=== PATIENT | female | born 1995 | race Caucasian/White ===

== ENCOUNTER 2022-01-23 08:30 | Inpatient (IN) | payer BC ==
[2022-01-23] MEDS: Lactated Ringers 1,000 ML IV ONE ×2 (09:00→10:16)
[2022-01-23] MEDS ORDERED: Ondansetron 4 MG/2 ML SDV ONE (09:50)
[2022-01-23] MEDS ORDERED: Water For Injection, Sterile 40 ML ONE (09:50)
[2022-01-23] MEDS ORDERED: Dexamethasone 4 MG/ML 5 ML MDV ONE (09:50)
[2022-01-23] MEDS ORDERED: Ropivacaine 0.5% 5 MG/ML 30 ML SDV ONE (09:50)
[2022-01-23] MEDS ORDERED: ceFAZolin 2 GM Vial ONE (09:50)
[2022-01-23] MEDS ORDERED: Dexmedetomidine 200 MCG/2 ML SDV ONE (09:50)
[2022-01-23] MEDS ORDERED: Bupivacaine 0.5% 10 ML SDV ONE (09:50)
[2022-01-23] MEDS ORDERED: Phenylephrine HCl In 0.9% NaCl 1 MG/10 ML Vial ONE (09:50)
[2022-01-23] MEDS ORDERED: Morphine PF 10 MG/10 ML SDV ONE (09:50)
[2022-01-23] MEDS ORDERED: Oxytocin 10 Units/1 ML SDV ONE (09:50)
[2022-01-23] MEDS ORDERED: Sodium Chloride 0.9% 2.5 ML Syringe FLUSH PRN (09:57)
[2022-01-23] MEDS ORDERED: Sodium Chloride 0.9% 20 ML SDV IV PRN (09:57)
[2022-01-23] MEDS ORDERED: Sodium Chloride 0.9% 10 ML Syringe FLUSH PRN (09:57)
[2022-01-23] MEDS ORDERED: Citric Acid/Sodium Citrate Solution 30 ML Cup PO ONE (09:57)
[2022-01-23] MEDS ORDERED: Oxytocin/0.9 % Sodium Chloride 30 UNIT/500 ML BAG IV SCH (10:00)
[2022-01-23] MEDS ORDERED: Clindamycin Phosphate in D5W 900 MG in Premix Bag 1 BAG IV ONE ×2 (10:09)
[2022-01-23] MEDS ORDERED: Misoprostol 200 MCG Tab RECTAL PRN (11:46)
[2022-01-23] MEDS ORDERED: Oxytocin 10 Units/1 ML SDV IM PRN (11:46)
[2022-01-23] MEDS ORDERED: Methylergonovine 0.2 MG/1 ML Amp IM PRN (11:46)
[2022-01-23] MEDS ORDERED: Acetaminophen/oxyCODONE 325-5 MG Tab PO PRN (11:46)
[2022-01-23] MEDS ORDERED: Ondansetron 4 MG/2 ML SDV IVPUSH PRN ×2 (11:46→12:01)
[2022-01-23] MEDS ORDERED: Bisacodyl 10 MG Supp RECTAL PRN (11:46)
[2022-01-23] MEDS ORDERED: Lanolin 100% Cream 7 GM Tube TOP PRN (11:46)
[2022-01-23] MEDS ORDERED: diphenhydrAMINE 50 MG/ML SDV IVPUSH PRN ×2 (11:46→12:01)
[2022-01-23] MEDS ORDERED: Ibuprofen 800 MG Tab PO PRN (11:46)
[2022-01-23] MEDS ORDERED: Tranexamic Acid 1,000 MG in Sodium Chloride 0.9% 100 ML IV PRN (11:46)
[2022-01-23] MEDS: Ketorolac 30 MG/ML SDV IVPUSH SCH ×2 (12:00→18:09)
[2022-01-23] MEDS ORDERED: Lactated Ringers 1,000 ML IV SCH (12:00)
[2022-01-23] MEDS ORDERED: fentaNYL 100 MCG/2 ML SDV IVPUSH PRN (12:01)
[2022-01-23] MEDS ORDERED: ePHEDrine 50 MG/ML SDV IVPUSH PRN (12:01)
[2022-01-23] MEDS ORDERED: Naloxone 0.4 MG/ML SDV IVPUSH PRN (12:01)
[2022-01-23] MEDS ORDERED: Nalbuphine HCl 10 MG/ 1ML Amp IVPUSH PRN (12:02)
[2022-01-23] MEDS ORDERED: Phenylephrine HCl In 0.9% NaCl 1 MG/10 ML Vial IVPUSH SCH (12:15)
[2022-01-23] MEDS: Docusate Sodium 100 MG Cap PO SCH (21:37)
[2022-01-24] MEDS: Ketorolac 30 MG/ML SDV IVPUSH SCH ×3 (06:08→12:27)
[2022-01-24] MEDS: Docusate Sodium 100 MG Cap PO SCH ×2 (09:57→21:04)
[2022-01-24] MEDS: Acetaminophen/oxyCODONE 325-5 MG Tab PO PRN (17:04)
[2022-01-25] MEDS: Acetaminophen/oxyCODONE 325-5 MG Tab PO PRN ×2 (06:39→10:52)
[2022-01-25] MEDS: Docusate Sodium 100 MG Cap PO SCH (10:54)
== END 2022-01-25 12:20 | disposition home or self-care (01) | DRG 540 ==
LOC: MW.OB 08:30
PROVIDERS: ADMIT Obstetrics & Gynecology; ATTEND Obstetrics & Gynecology
PROC: 10D00Z1 Extraction of Products of Conception, Low, Open Approach (ICD-10-PCS; principal; 2022-01-23)
DX: O34.211 Maternal care for low transverse scar from previous cesarean delivery (principal); Z37.0 Single live birth; O99.214 Obesity complicating childbirth; O99.62 Diseases of the digestive system complicating childbirth; K21.9 Gastro-esophageal reflux disease without esophagitis; O99.344 Other mental disorders complicating childbirth; F41.9 Anxiety disorder, unspecified; F34.1 Dysthymic disorder; Z3A.39 39 weeks gestation of pregnancy
CPT/HCPCS: 01961; 36415; 59025; 64488; 82803; 85014; 85018; A9270-GY; J0690; J1100; J1885; J2274; J2405; J2590; J2795; J3490; J7120

== ENCOUNTER 2023-07-26 12:25 | Emergency (ER) | payer BC ==
[2023-07-26] MEDS: Sodium Chloride 0.9% 1,000 ML IV ONE (12:40)
[2023-07-26 12:46] LABS: APPEARANCE,URINE CLEAR; BILIRUBIN,URINE NEGATIVE (NEGATIVE); COLOR,URINE YELLOW; GLUCOSE,URINE NEGATIVE (NEGATIVE); KETONES,URINE NEGATIVE (NEGATIVE); LEUKOCYTE ESTERASE,URINE NEGATIVE (NEGATIVE); NITRITE,URINE NEGATIVE (NEGATIVE); OCCULT BLOOD,URINE TRACE-INTACT (NEGATIVE); PH,URINE 6.5 (5.0-8.0); PROTEIN,URINE NEGATIVE (NEGATIVE); UROBILINOGEN,URINE 0.2 EU/dL (<2.0)
[2023-07-26 12:53] LABS: BASOPHILS ABSOLUTE AUTO 0.04 K/uL (0.00-0.20); BASOPHILS PERCENT AUTO 0.5 % (0.0-1.0); EOSINOPHILS ABSOLUTE AUTO 0.12 K/uL (0.00-0.45); EOSINOPHILS PERCENT AUTO 1.6 % (0.0-6.0); HEMATOCRIT 43.1 % (37.0-47.0); HEMOGLOBIN 15.1 g/dL (12.0-16.0); IMMATURE GRAN ABSOLUTE AUTO 0.01 K/uL (0.00-0.05); IMMATURE GRAN PERCENT AUTO 0.1 % (0.0-0.4); LYMPHOCYTES PERCENT AUTO 45.9 % (24.0-44.0); MEAN CORPUSCULAR HEMOGLOBIN 30.6 pg (28.0-32.0); MEAN CORPUSCULAR VOLUME 87.2 fL (83.0-99.0); MEAN PLATELET VOLUME 9.6 fL (9.4-12.3); MONOCYTES ABSOLUTE AUTO 0.53 K/uL (0.00-0.80); NEUTROPHILS ABSOLUTE AUTO 3.42 K/uL (1.80-7.70); NEUTROPHILS PERCENT AUTO 44.9 % (41.0-71.0); PLATELET COUNT,PLT 337 K/uL (150-400); RED BLOOD CELL COUNT 4.94 M/uL (4.10-5.30); WHITE BLOOD CELL COUNT,WBC 7.62 K/uL (3.9-11.3)
[2023-07-26] MEDS: Ketorolac 30 MG/ML SDV IVPUSH ONE (12:53)
[2023-07-26] MEDS: Ondansetron 4 MG/2 ML SDV IVPUSH ONE (12:53)
[2023-07-26 13:09] LABS: BACTERIA,URINE FEW (NEGATIVE); EPITHELIAL CELLS,URINE MODERATE (NONE-FEW)
[2023-07-26 14:00] LABS: ALBUMIN 3.5 g/dL (3.4-5.0); BILIRUBIN TOTAL 0.3 mg/dL (0.2-1.0); CARBON DIOXIDE,CO2 27.1 mmol/L (21.0-32.0); CREATININE 0.7 mg/dL (0.6-1.0); EST CRCL DRUG DOSING (CG) 95.48 mL/min; POTASSIUM,K 3.9 mmol/L (3.5-5.1)
== END 2023-07-26 15:00 | disposition home or self-care (01) ==
LOC: MW.ED 12:25
DX: R10.11 Right upper quadrant pain (principal); R11.2 Nausea with vomiting, unspecified; Z75.8 Other problems related to medical facilities and other health care; K21.9 Gastro-esophageal reflux disease without esophagitis; E66.9 Obesity, unspecified; Z79.899 Other long term (current) drug therapy; Z88.0 Allergy status to penicillin; Z91.018 Allergy to other foods; Z88.2 Allergy status to sulfonamides; Z68.32 Body mass index [BMI] 32.0-32.9, adult
CPT/HCPCS: 36415; 76705; 80053; 81001; 81025; 83690; 85025; 96374; 96375; 99284; J1885; J2405; J7030

== ENCOUNTER 2023-09-26 10:39 | Day surgery (SDC) | payer BC ==
[~2023-09-26 10:39] MED LIST: Sodium Chloride 0.9% 10 ML Syringe FLUSH PRN; Sodium Chloride 0.9% 2.5 ML Syringe FLUSH PRN; Sodium Chloride 0.9% 20 ML SDV IV PRN
[2023-09-26] MEDS: Lactated Ringers 1,000 ML IV SCH (11:27)
[2023-09-26] MEDS ORDERED: Propofol 200 MG/20 ML SDV ONE (13:14)
[2023-09-26] MEDS ORDERED: Lidocaine 2% 5 ML SDV ONE (13:22)
[2023-09-26] MEDS ORDERED: dexmedeTOMIDine HCl 200 MCG/2 ML SDV ONE (13:25)
== END 2023-09-26 14:17 | disposition home or self-care (01) ==
LOC: MW.SDS 10:39
PROVIDERS: ATTEND Surgery
DX: K21.00 Gastro-esophageal reflux disease with esophagitis, without bleeding (principal); K29.50 Unspecified chronic gastritis without bleeding; F32.A Depression, unspecified; F41.9 Anxiety disorder, unspecified; F17.290 Nicotine dependence, other tobacco product, uncomplicated; Z79.899 Other long term (current) drug therapy; Z88.0 Allergy status to penicillin; Z88.2 Allergy status to sulfonamides; Z91.018 Allergy to other foods
CPT/HCPCS: 43239; 81025; J2704; J7120; 00731; J3490

== ENCOUNTER 2023-11-13 20:55 | Emergency (ER) | payer BC ==
[2023-11-13] MEDS: Acetaminophen/HYDROcodone 325-10 MG Tab PO ONE (21:48)
== END 2023-11-13 22:40 | disposition home or self-care (01) ==
LOC: MW.ED 20:55
DX: S86.011A Strain of right Achilles tendon, initial encounter (principal); K21.9 Gastro-esophageal reflux disease without esophagitis; E66.9 Obesity, unspecified; Z75.8 Other problems related to medical facilities and other health care; Z79.899 Other long term (current) drug therapy; Z79.2 Long term (current) use of antibiotics; Z88.0 Allergy status to penicillin; Z88.2 Allergy status to sulfonamides; Z91.018 Allergy to other foods; Z68.33 Body mass index [BMI] 33.0-33.9, adult; X50.1XXA Overexertion from prolonged static or awkward postures, initial encounter; Y93.68 Activity, volleyball (beach) (court)
CPT/HCPCS: 73590; 73610; 99284; A9270; 99283

== ENCOUNTER 2023-11-20 09:59 | Day surgery (SDC) | payer BC ==
[~2023-11-20 09:59] MED LIST changes: +Albuterol 0.083% 2.5 MG/3 ML Neb Soln NEB PRN; +Bupivacaine 0.25% 30 ML SDV ONE; +Metoclopramide 10 MG/2 ML SDV IVPUSH PRN; +Morphine 2 MG/ML SYRINGE IVPUSH PRN; +Naloxone 0.4 MG/ML SDV IVPUSH PRN; +Ondansetron 4 MG/2 ML SDV IVPUSH PRN; +Phenylephrine HCl In 0.9% NaCl 1 MG/10 ML Syringe IVPUSH PRN; +Propofol 200 MG/20 ML SDV ONE; -Sodium Chloride 0.9% 10 ML Syringe FLUSH PRN; -Sodium Chloride 0.9% 2.5 ML Syringe FLUSH PRN; -Sodium Chloride 0.9% 20 ML SDV IV PRN; +ceFAZolin 2 GM in Sodium Chloride 0.9% 50 ML IV ONE; +droPERidol 5 MG/2 ML SDV IVPUSH PRN; +fentaNYL 250 MCG/5 ML SDV ONE; +fentaNYL 50 MCG/ML SDV IVPUSH PRN
[2023-11-20] MEDS ORDERED: Lidocaine 2% 5 ML SDV INJECT ONE (10:00)
[2023-11-20] MEDS ORDERED: Bupivacaine 0.5% 30 ML SDV ONE (10:07)
[2023-11-20] MEDS: Lactated Ringers 1,000 ML IV SCH (10:32)
[2023-11-20] MEDS ORDERED: Rocuronium Bromide 50 MG/5 ML Syringe ONE (12:03)
[2023-11-20] MEDS ORDERED: ceFAZolin 2 GM Vial ONE (12:13)
[2023-11-20] MEDS ORDERED: Dexamethasone 4 MG/ML 5 ML MDV ONE (12:19)
[2023-11-20] MEDS ORDERED: Ondansetron 4 MG/2 ML SDV ONE (12:19)
[2023-11-20] MEDS ORDERED: Sugammadex Sodium 200 MG/2 ML VIAL IV ONE (12:21)
[2023-11-20] MEDS ORDERED: propofoL 50 ML ONE ×2 (12:30)
[2023-11-20] MEDS ORDERED: Ketorolac 30 MG/ML SDV ONE (13:28)
[2023-11-20] MEDS: HYDROmorphone 1 MG/ML Syringe IVPUSH PRN (13:34)
[2023-11-20] MEDS ORDERED: Ropivacaine 0.5% 5 MG/ML 30 ML SDV ONE (14:22)
[2023-11-20] MEDS: Acetaminophen/HYDROcodone 325-5 MG Tab PO ONE (14:34)
== END 2023-11-20 15:35 | disposition home or self-care (01) ==
LOC: MW.SDS 09:59
PROVIDERS: ATTEND Orthopaedic Surgery
DX: S86.011A Strain of right Achilles tendon, initial encounter (principal); K21.9 Gastro-esophageal reflux disease without esophagitis; F17.290 Nicotine dependence, other tobacco product, uncomplicated; Z79.899 Other long term (current) drug therapy; X58.XXXA Exposure to other specified factors, initial encounter
CPT/HCPCS: 27650; 76000; 81025; A9270; C1776; J0665; J0690; J1100; J1170; J1885; J2405; J2704; J2795; J3010; J3490; J7120